=== PATIENT | male | born 1955 | race Two or more races ===

== ENCOUNTER 2020-06-13 10:36 | Day surgery (SDC) | payer OTHER ==
[2020-06-10 11:17] LABS: Basophils # (auto) 0 10 ^3/uL (0-0.2); Eosinophils # (auto) 0 10 ^3/uL (0-0.8); Hemoglobin 10.6 g/dL (13.5-17.5); Monocytes # (auto) 0.4 10 ^3/uL (0-1.3); Neutrophils # (auto) 2.1 10 ^3/uL (1.6-8.6); Platelet Count (auto) 27 10^3/uL (140-450); White Blood Cell 3.5 10^3/uL (4.4-10.8)
[2020-06-10 11:18] LABS: Basophils % (auto) 0.3 % (0.0-2.0); Eosinophils % (auto) 0.1 % (0.0-7.0); Hematocrit 29.8 % (41.0-53.0); Lymphocytes % (auto) 29.7 % (10.0-50.0); Mean Corpuscular Hemoglobin 31.1 pg (28.0-32.0); Mean Corpuscular Hgb Conc. 35.4 g/dL (32.0-36.0); Mean Corpuscular Volume 87.7 fL (80.0-100.0); Monocytes % (auto) 10.8 % (0.0-12.0); Neutrophils % (auto) 59.1 % (37.0-80.0); Nucleated Red Blood Cells % 0.4 %; Red Cell Distribution Width 13.7 % (11.8-14.3)
[2020-06-10 12:21] LABS: Potassium 4.1 mmol/L (3.5-5.1)
[2020-06-10 12:38] LABS: Albumin 3.2 g/dL (3.4-5.0); BUN/Creatinine Ratio 28.6; Bilirubin, Total 0.5 mg/dL (0.2-1.0); Calcium 9.3 mg/dL (8.5-10.1); Total Protein 7.9 g/dL (6.4-8.2)
[~2020-06-13] VITALS: Ht 172.7 cm; Wt 90.7 kg
[2020-06-13] MEDS ORDERED: diphenhdrAMINE HCL 25 MG CAP PO ONE (11:30)
[2020-06-13] MEDS ORDERED: ACETAMINOPHEN 325 MG TAB PO ONE (11:30)
[2020-06-13 12:06] VITALS: BP 114/64
[2020-06-13 12:34] VITALS: BP 119/63
[2020-06-13 13:54] VITALS: BP 137/66
== END 2020-06-13 13:57 | disposition home or self-care (01) ==
LOC: CATH 10:36
PROVIDERS: ATTEND Internal Medicine
DX: D69.6 Thrombocytopenia, unspecified (principal); C92.01 Acute myeloblastic leukemia, in remission; Z68.30 Body mass index [BMI] 30.0-30.9, adult; Z98.890 Other specified postprocedural states; Z79.899 Other long term (current) drug therapy; Z20.822 Contact with and (suspected) exposure to COVID-19
CPT/HCPCS: 36415; 36430; 80053; 83615; 85025; 86850; 86900; 86901; J7040; P9035; U0003

== ENCOUNTER 2020-06-18 07:17 | Day surgery (SDC) | payer OTHER ==
[~2020-06-18] VITALS: Ht 172.7 cm; Wt 90.7 kg
[2020-06-18] MEDS ORDERED: ACETAMINOPHEN 325 MG TAB PO PRN (08:00)
[2020-06-18] MEDS ORDERED: diphenhdrAMINE HCL 25 MG CAP PO ONE ×2 (08:00→09:17)
[2020-06-18 08:14] LABS: Hemoglobin 8.5 g/dL (13.5-17.5)
[2020-06-18 08:15] LABS: Hematocrit 24.7 % (41.0-53.0); Mean Corpuscular Hemoglobin 31.6 pg (28.0-32.0); Mean Corpuscular Hgb Conc. 34.3 g/dL (32.0-36.0); Mean Corpuscular Volume 91.9 fL (80.0-100.0); Platelet Count (auto) 22 10^3/uL (140-450); Red Blood Cells 2.68 10^6/uL (4.5-5.90); Red Cell Distribution Width 13.4 % (11.8-14.3); White Blood Cell 2.5 10^3/uL (4.4-10.8)
[2020-06-18 08:22] LABS: Basophils % (manual) 0 (0.0-2.0); Blast Cells 0; Eosinophils % (manual) 0 (0-7); Metamyelocytes % 0; Myelocytes % 0; Promyelocytes % 0; Reactive Lymphocytes 0
[2020-06-18 08:39] LABS: Anion Gap 8 (5-15); Blood Urea Nitrogen 11 mg/dL (7-18); Carbon Dioxide 27 mmol/L (21-32); Chloride 105 mmol/L (98-107); Glucose 114 mg/dL (74-106); Potassium 3.8 mmol/L (3.5-5.1); Sodium 140 mmol/L (136-145)
[2020-06-18 08:40] LABS: BUN/Creatinine Ratio 16.4; Calcium 8.4 mg/dL (8.5-10.1); GFR African American 153 mL/min; GFR Non-African American 126 mL/min
[2020-06-18 09:15] VITALS: BP 128/73
[2020-06-18 09:30] VITALS: BP 131/70
[2020-06-18 09:45] LABS: Band Neutrophils % (manual) 1; Lymphocytes % (manual) 42 (10.0-50.0); Monocytes % (manual) 8 (0-12)
[2020-06-18 10:06] VITALS: BP 126/64
[2020-06-18 11:02] VITALS: BP 119/68
[2020-06-18] MEDS ORDERED: LISI-648 PO (11:44)
[2020-06-18] MEDS ORDERED: FOLI1TAB6 PO (11:44)
[2020-06-18] MEDS ORDERED: CHOL50007 PO (11:44)
[2020-06-18] MEDS ORDERED: ELTR25PA PO (11:44)
[2020-06-18] MEDS ORDERED: THIA100T5 PO (11:44)
[2020-06-18] MEDS ORDERED: LANS-34 PO (11:44)
[2020-06-18] MEDS ORDERED: ACYC-163 PO (11:44)
[2020-06-18] MEDS ORDERED: ALLO300T2 PO (11:44)
[2020-06-18] MEDS ORDERED: FLUT250M2 INH (11:44)
[2020-06-18 11:57] VITALS: BP 132/83
[2020-06-18 12:56] LABS: Basophils # (auto) 0 10 ^3/uL (0-0.2); Eosinophils # (auto) 0 10 ^3/uL (0-0.8); Hemoglobin 8.1 g/dL (13.5-17.5); Monocytes # (auto) 0.2 10 ^3/uL (0-1.3); Neutrophils # (auto) 1.2 10 ^3/uL (1.6-8.6); Nucleated Red Blood Cells % 0.5 %; Platelet Count (auto) 38 10^3/uL (140-450); Red Cell Distribution Width 13.4 % (11.8-14.3); White Blood Cell 2.5 10^3/uL (4.4-10.8)
[2020-06-18 13:00] LABS: Basophils % (auto) 0.4 % (0.0-2.0); Eosinophils % (auto) 0.3 % (0.0-7.0); Hematocrit 22.8 % (41.0-53.0); Lymphocytes % (auto) 41.6 % (10.0-50.0); Mean Corpuscular Hemoglobin 31.9 pg (28.0-32.0); Mean Corpuscular Hgb Conc. 35.6 g/dL (32.0-36.0); Mean Corpuscular Volume 89.7 fL (80.0-100.0); Monocytes % (auto) 9.6 % (0.0-12.0); Neutrophils % (auto) 48.1 % (37.0-80.0); Red Blood Cells 2.54 10^6/uL (4.5-5.90)
== END 2020-06-18 12:40 | disposition home or self-care (01) ==
LOC: CATH 07:17
PROVIDERS: ATTEND Internal Medicine
DX: D64.9 Anemia, unspecified (principal); I10 Essential (primary) hypertension; Z80.1 Family history of malignant neoplasm of trachea, bronchus and lung; Z20.822 Contact with and (suspected) exposure to COVID-19; Z98.890 Other specified postprocedural states; Z79.899 Other long term (current) drug therapy; Z68.30 Body mass index [BMI] 30.0-30.9, adult
CPT/HCPCS: 36415; 36430; 80048; 85007; 85025; 85027; 86850; 86900; 86901; J7030; J7050; P9035; U0003

== ENCOUNTER 2020-06-24 17:33 | Emergency (ER) | payer OTHER ==
[~2020-06-24] VITALS: Ht 172.7 cm; Wt 90.7 kg
[~2020-06-24 17:33] MED LIST: ACYC-163 PO; ALLO300T2 PO; CHOL50007 PO; ELTR25PA PO; FLUT250M2 INH; FOLI1TAB6 PO; LANS-34 PO; LISI-648 PO; THIA100T5 PO
[2020-06-24 20:29] LABS: Basophils # (auto) 0 10 ^3/uL (0-0.2); Basophils % (auto) 0.8 % (0.0-2.0); Eosinophils # (auto) 0 10 ^3/uL (0-0.8); Lymphocytes # (auto) 1.2 10 ^3/uL (0.4-5.4)
[2020-06-24 20:31] LABS: Eosinophils % (auto) 0.4 % (0.0-7.0); Hematocrit 21.2 % (41.0-53.0); Hemoglobin 7.5 g/dL (13.5-17.5); Mean Corpuscular Hemoglobin 32.3 pg (28.0-32.0); Mean Corpuscular Hgb Conc. 35.3 g/dL (32.0-36.0); Mean Corpuscular Volume 91.5 fL (80.0-100.0); Monocytes # (auto) 0.2 10 ^3/uL (0-1.3); Monocytes % (auto) 7.6 % (0.0-12.0); Neutrophils # (auto) 1.5 10 ^3/uL (1.6-8.6); Neutrophils % (auto) 50.2 % (37.0-80.0); Nucleated Red Blood Cells % 0.3 %; Red Blood Cells 2.32 10^6/uL (4.5-5.90); Red Cell Distribution Width 13.5 % (11.8-14.3)
[2020-06-24 20:52] LABS: Calcium 8.1 mg/dL (8.5-10.1); Potassium 3.1 mmol/L (3.5-5.1)
[2020-06-24 20:58] LABS: Albumin 3.1 g/dL (3.4-5.0); BUN/Creatinine Ratio 25.8; Bilirubin, Total 0.3 mg/dL (0.2-1.0); Total Protein 6.8 g/dL (6.4-8.2)
[2020-06-24 20:59] LABS: Platelet Count (auto) 13 10^3/uL (140-450)
[2020-06-24] MEDS ORDERED: diphenhdrAMINE HCL 25 MG CAP PO STA (21:12)
[2020-06-24] MEDS ORDERED: ACETAMINOPHEN 500 MG TAB PO ONE (21:15)
[2020-06-24] MEDS ORDERED: POTASSIUM EFFERVESENT TAB 25 MEQ PO ONE (22:45)
[2020-06-25 04:00] VITALS: BP 127/65
== END 2020-06-25 05:06 | disposition home or self-care (01) ==
LOC: ER 17:33
DX: D69.6 Thrombocytopenia, unspecified (principal); C94.80 Other specified leukemias not having achieved remission; Z87.891 Personal history of nicotine dependence; Z79.899 Other long term (current) drug therapy
CPT/HCPCS: 36415; 36430; 80053; 85025; 85610; 86850; 86900; 86901; 99285; P9035

== ENCOUNTER 2020-07-03 08:02 | Day surgery (SDC) | payer OTHER ==
[2020-06-30 10:41] LABS: Basophils # (auto) 0 10 ^3/uL (0-0.2); Eosinophils # (auto) 0 10 ^3/uL (0-0.8); Lymphocytes # (auto) 0.9 10 ^3/uL (0.4-5.4); Monocytes # (auto) 0.2 10 ^3/uL (0-1.3); Neutrophils # (auto) 1.2 10 ^3/uL (1.6-8.6); White Blood Cell 2.4 10^3/uL (4.4-10.8)
[2020-06-30 10:43] LABS: Basophils % (auto) 0.5 % (0.0-2.0); Eosinophils % (auto) 0.6 % (0.0-7.0); Hematocrit 22.4 % (41.0-53.0); Hemoglobin 7.7 g/dL (13.5-17.5); Lymphocytes % (auto) 38.5 % (10.0-50.0); Mean Corpuscular Hemoglobin 32.7 pg (28.0-32.0); Mean Corpuscular Hgb Conc. 34.5 g/dL (32.0-36.0); Mean Corpuscular Volume 94.8 fL (80.0-100.0); Monocytes % (auto) 9.8 % (0.0-12.0); Neutrophils % (auto) 50.6 % (37.0-80.0); Nucleated Red Blood Cells % 0.3 %; Red Blood Cells 2.36 10^6/uL (4.5-5.90)
[2020-06-30 11:09] LABS: Platelet Count (auto) 19 10^3/uL (140-450); Potassium 4.1 mmol/L (3.5-5.1)
[2020-06-30 11:19] LABS: Albumin 3.1 g/dL (3.4-5.0); BUN/Creatinine Ratio 30.6; Bilirubin, Total 0.3 mg/dL (0.2-1.0); Calcium 8.5 mg/dL (8.5-10.1)
[2020-07-03 08:45] VITALS: BP 110/56
[2020-07-03] MEDS ORDERED: diphenhdrAMINE HCL 25 MG CAP PO ONE (08:45)
[2020-07-03] MEDS ORDERED: ACETAMINOPHEN 325 MG TAB PO ONE (08:45)
[2020-07-03 09:00] VITALS: BP 135/66
[2020-07-03 11:39] VITALS: BP 145/67
[2020-07-03 11:40] VITALS: BP 141/71
[2020-07-03 12:38] LABS: Basophils # (auto) 0 10 ^3/uL (0-0.2); Basophils % (auto) 0.5 % (0.0-2.0); Eosinophils # (auto) 0 10 ^3/uL (0-0.8); Hemoglobin 7.4 g/dL (13.5-17.5); Monocytes # (auto) 0.3 10 ^3/uL (0-1.3); Neutrophils # (auto) 1.1 10 ^3/uL (1.6-8.6); Red Blood Cells 2.25 10^6/uL (4.5-5.90); White Blood Cell 2.4 10^3/uL (4.4-10.8)
[2020-07-03 12:41] LABS: Eosinophils % (auto) 0.2 % (0.0-7.0); Hematocrit 21.7 % (41.0-53.0); Lymphocytes % (auto) 41.4 % (10.0-50.0); Mean Corpuscular Hemoglobin 32.9 pg (28.0-32.0); Mean Corpuscular Hgb Conc. 34.1 g/dL (32.0-36.0); Mean Corpuscular Volume 96.5 fL (80.0-100.0); Monocytes % (auto) 12.5 % (0.0-12.0); Neutrophils % (auto) 45.4 % (37.0-80.0); Nucleated Red Blood Cells % 0.5 %; Platelet Count (auto) 39 10^3/uL (140-450); Red Cell Distribution Width 14.8 % (11.8-14.3)
== END 2020-07-03 12:25 | disposition home or self-care (01) ==
LOC: CATH 08:02
PROVIDERS: ATTEND Internal Medicine
DX: D64.9 Anemia, unspecified (principal); Z20.822 Contact with and (suspected) exposure to COVID-19; Z98.890 Other specified postprocedural states; Z79.899 Other long term (current) drug therapy
CPT/HCPCS: 36415; 36430; 80053; 83615; 85025; 86850; 86900; 86901; J7040; P9035; U0003; 99152

== ENCOUNTER 2020-07-09 14:07 | Emergency (ER) | payer OTHER ==
[~2020-07-09] VITALS: Ht 172.7 cm; Wt 90.7 kg
[~2020-07-09 14:07] MED LIST changes: +ACETAMINOPHEN 500 MG TAB PO ONE
[2020-07-09 14:59] LABS: Basophils # (auto) 0 10 ^3/uL (0-0.2); Eosinophils # (auto) 0 10 ^3/uL (0-0.8); Hemoglobin 7.2 g/dL (13.5-17.5); Monocytes # (auto) 0.3 10 ^3/uL (0-1.3); Nucleated Red Blood Cells % 0.5 %; White Blood Cell 2.3 10^3/uL (4.4-10.8)
[2020-07-09 15:01] LABS: Basophils % (auto) 0.6 % (0.0-2.0); Hematocrit 21.3 % (41.0-53.0); Lymphocytes # (auto) 0.9 10 ^3/uL (0.4-5.4); Lymphocytes % (auto) 41.4 % (10.0-50.0); Mean Corpuscular Hemoglobin 33.5 pg (28.0-32.0); Mean Corpuscular Hgb Conc. 33.7 g/dL (32.0-36.0); Mean Corpuscular Volume 99.3 fL (80.0-100.0); Monocytes % (auto) 12.1 % (0.0-12.0); Neutrophils % (auto) 44.9 % (37.0-80.0); Red Blood Cells 2.15 10^6/uL (4.5-5.90)
[2020-07-09 15:05] LABS: Albumin 3.3 g/dL (3.4-5.0); Calcium 8.6 mg/dL (8.5-10.1); Potassium 3.7 mmol/L (3.5-5.1)
[2020-07-09 15:08] LABS: BUN/Creatinine Ratio 19.4; Bilirubin, Total 0.4 mg/dL (0.2-1.0); Total Protein 6.9 g/dL (6.4-8.2)
[2020-07-09 15:11] LABS: Red Cell Distribution Width 25.5 % (11.8-14.3)
[2020-07-09 15:13] LABS: Platelet Count (auto) 14 10^3/uL (140-450)
[2020-07-09 16:47] LABS: INR 0.99 (0.9-1.15); Partial Thromboplastin Time 29.3 sec (23.0-31.2)
[2020-07-09] MEDS ORDERED: diphenhdrAMINE HCL 25 MG CAP PO PRN (17:30)
[2020-07-09] MEDS ORDERED: ACETAMINOPHEN 325 MG TAB PO ONE (18:00)
[2020-07-09] MEDS ORDERED: diphenhdrAMINE HCL 50 MG/1 ML VL IV ONE (21:00)
[2020-07-09] MEDS ORDERED: ACETAMINOPHEN 500 MG TAB PO ONE (21:15)
[2020-07-09] MEDS ORDERED: HYDROcodone-ACET 10/325MG TAB PO ONE (22:45)
[2020-07-10 04:38] VITALS: BP 60/65
[2020-07-10 04:45] LABS: Basophils # (auto) 0 10 ^3/uL (0-0.2); Eosinophils # (auto) 0 10 ^3/uL (0-0.8); Lymphocytes # (auto) 1.1 10 ^3/uL (0.4-5.4); Monocytes # (auto) 0.3 10 ^3/uL (0-1.3); Neutrophils # (auto) 0.9 10 ^3/uL (1.6-8.6); White Blood Cell 2.4 10^3/uL (4.4-10.8)
[2020-07-10 04:47] LABS: Basophils % (auto) 0.4 % (0.0-2.0); Eosinophils % (auto) 0.8 % (0.0-7.0); Hematocrit 23.4 % (41.0-53.0); Lymphocytes % (auto) 46.7 % (10.0-50.0); Mean Corpuscular Hemoglobin 33.1 pg (28.0-32.0); Mean Corpuscular Hgb Conc. 34.3 g/dL (32.0-36.0); Mean Corpuscular Volume 96.3 fL (80.0-100.0); Monocytes % (auto) 13.2 % (0.0-12.0); Neutrophils % (auto) 38.9 % (37.0-80.0); Nucleated Red Blood Cells % 0.4 %; Platelet Count (auto) 27 10^3/uL (140-450); Red Blood Cells 2.42 10^6/uL (4.5-5.90)
[2020-07-10 04:59] LABS: Red Cell Distribution Width 22.1 % (11.8-14.3)
== END 2020-07-10 05:10 | disposition home or self-care (01) ==
LOC: ER 14:07
DX: D69.6 Thrombocytopenia, unspecified (principal); D64.9 Anemia, unspecified; I10 Essential (primary) hypertension; Z85.6 Personal history of leukemia; Z87.891 Personal history of nicotine dependence
CPT/HCPCS: 36415; 80053; 85025; 85610; 85730; 93005; 96374; 99285; J1200

== ENCOUNTER 2020-07-11 06:57 | Day surgery (SDC) | payer OTHER ==
[2020-07-09 11:21] LABS: Basophils # (auto) 0 10 ^3/uL (0-0.2); Eosinophils # (auto) 0 10 ^3/uL (0-0.8); Eosinophils % (auto) 0.7 % (0.0-7.0); Hemoglobin 7.5 g/dL (13.5-17.5); Monocytes # (auto) 0.3 10 ^3/uL (0-1.3); Monocytes % (auto) 11.8 % (0.0-12.0); Nucleated Red Blood Cells % 0.4 %; White Blood Cell 2.7 10^3/uL (4.4-10.8)
[2020-07-09 11:23] LABS: Basophils % (auto) 0.8 % (0.0-2.0); Lymphocytes % (auto) 37.3 % (10.0-50.0); Mean Corpuscular Hemoglobin 33.7 pg (28.0-32.0); Mean Corpuscular Hgb Conc. 34.1 g/dL (32.0-36.0); Mean Corpuscular Volume 98.7 fL (80.0-100.0); Neutrophils # (auto) 1.3 10 ^3/uL (1.6-8.6); Neutrophils % (auto) 49.4 % (37.0-80.0); Red Blood Cells 2.23 10^6/uL (4.5-5.90); Red Cell Distribution Width 25.1 % (11.8-14.3)
[2020-07-09 11:56] LABS: Albumin 3.4 g/dL (3.4-5.0); Calcium 8.4 mg/dL (8.5-10.1); Potassium 3.8 mmol/L (3.5-5.1)
[2020-07-09 12:00] LABS: BUN/Creatinine Ratio 21.5; Bilirubin, Total 0.5 mg/dL (0.2-1.0); Total Protein 7.1 g/dL (6.4-8.2)
[2020-07-09 12:33] LABS: Platelet Count (auto) 15 10^3/uL (140-450)
[~2020-07-11] VITALS: Ht 172.7 cm; Wt 90.7 kg
[~2020-07-11 06:57] MED LIST changes: -ACETAMINOPHEN 500 MG TAB PO ONE
[2020-07-11] MEDS ORDERED: ACETAMINOPHEN 325 MG TAB PO ONE (08:15)
[2020-07-11] MEDS ORDERED: diphenhdrAMINE HCL 25 MG CAP PO ONE (08:15)
[2020-07-11 09:05] VITALS: BP 134/66
[2020-07-11 09:12] VITALS: BP 142/62
[2020-07-11 09:40] VITALS: BP 132/67
[2020-07-11 10:11] VITALS: BP 150/77
[2020-07-11 10:38] VITALS: BP 144/69
[2020-07-11 11:13] LABS: Basophils # (auto) 0 10 ^3/uL (0-0.2); Eosinophils # (auto) 0 10 ^3/uL (0-0.8); Hemoglobin 8.2 g/dL (13.5-17.5); Lymphocytes # (auto) 0.8 10 ^3/uL (0.4-5.4)
[2020-07-11 11:15] LABS: Basophils % (auto) 1.2 % (0.0-2.0); Eosinophils % (auto) 0.3 % (0.0-7.0); Hematocrit 24.5 % (41.0-53.0); Lymphocytes % (auto) 34.2 % (10.0-50.0); Mean Corpuscular Hemoglobin 32.6 pg (28.0-32.0); Mean Corpuscular Hgb Conc. 33.6 g/dL (32.0-36.0); Mean Corpuscular Volume 97.2 fL (80.0-100.0); Monocytes # (auto) 0.2 10 ^3/uL (0-1.3); Neutrophils # (auto) 1.3 10 ^3/uL (1.6-8.6); Neutrophils % (auto) 54.3 % (37.0-80.0); Nucleated Red Blood Cells % 0.1 %; Platelet Count (auto) 50 10^3/uL (140-450); Red Blood Cells 2.52 10^6/uL (4.5-5.90); White Blood Cell 2.4 10^3/uL (4.4-10.8)
== END 2020-07-11 11:10 | disposition home or self-care (01) ==
LOC: CATH 06:57
PROVIDERS: ATTEND Internal Medicine
DX: D64.9 Anemia, unspecified (principal); Z20.822 Contact with and (suspected) exposure to COVID-19; Z98.890 Other specified postprocedural states; Z79.899 Other long term (current) drug therapy; Z68.30 Body mass index [BMI] 30.0-30.9, adult
CPT/HCPCS: 36415; 36430; 80053; 83615; 85025; 86850; 86900; 86901; 86920; P9016; P9035; U0003

== ENCOUNTER 2020-07-16 07:27 | Day surgery (SDC) | payer OTHER ==
[2020-07-16] VITALS (8 sets, daily range): BP systolic 107–155; BP diastolic 63–86
[2020-07-16] MEDS ORDERED: ACETAMINOPHEN 325 MG TAB PO ONE ×2 (07:58→08:00)
[2020-07-16] MEDS ORDERED: diphenhdrAMINE HCL 25 MG CAP PO ONE (08:00)
== END 2020-07-16 14:40 | disposition home or self-care (01) ==
LOC: CATH 07:27
PROVIDERS: ATTEND Internal Medicine
DX: D64.9 Anemia, unspecified (principal); Z98.890 Other specified postprocedural states; Z79.899 Other long term (current) drug therapy
CPT/HCPCS: 36430; 86850; 86900; 86901; J7030; P9035

== ENCOUNTER 2020-07-18 07:33 | Day surgery (SDC) | payer OTHER ==
[2020-07-18] VITALS (10 sets, daily range): BP systolic 101–148; BP diastolic 52–77
[2020-07-18] MEDS ORDERED: ACETAMINOPHEN 325 MG TAB PO ONE (08:15)
[2020-07-18] MEDS ORDERED: diphenhdrAMINE HCL 25 MG CAP PO ONE ×2 (08:15→08:25)
[2020-07-18] MEDS ORDERED: HYDR-4798 PO (10:11)
[2020-07-18] MEDS ORDERED: ZOLP10TA6 PO (10:11)
[2020-07-18] MEDS ORDERED: ATOR20TA PO (10:11)
[2020-07-18] MEDS ORDERED: FINA5TAB4 PO (10:11)
[2020-07-18] MEDS ORDERED: FLUT1AER6 IN (10:11)
[2020-07-18] MEDS ORDERED: SUCR1TAB PO (10:11)
[2020-07-18] MEDS ORDERED: TAMS0.4C36 PO (10:11)
[2020-07-18] MEDS ORDERED: OMEP-434 PO (10:11)
[2020-07-18] MEDS ORDERED: MULT-1018 PO (10:18)
[2020-07-18] MEDS ORDERED: ELTR25PA PO (10:18)
[2020-07-18] MEDS ORDERED: CHOL500033 PO (10:18)
[2020-07-18 15:14] LABS: Hemoglobin 7.5 g/dL (13.5-17.5); Platelet Count (auto) 62 10^3/uL (140-450); Red Blood Cells 2.18 10^6/uL (4.5-5.90); White Blood Cell 2.6 10^3/uL (4.4-10.8)
[2020-07-18 15:17] LABS: Hematocrit 21.7 % (41.0-53.0); Mean Corpuscular Hemoglobin 34.5 pg (28.0-32.0); Mean Corpuscular Hgb Conc. 34.7 g/dL (32.0-36.0); Mean Corpuscular Volume 99.4 fL (80.0-100.0)
[2020-07-18 15:21] LABS: Red Cell Distribution Width 24.7 % (11.8-14.3)
[2020-07-18 15:23] LABS: Basophils % (manual) 0 (0.0-2.0); Metamyelocytes % 0; Myelocytes % 0; Promyelocytes % 0; Reactive Lymphocytes 0
[2020-07-18 15:52] LABS: Eosinophils % (manual) 1 (0-7)
[2020-07-18 16:57] LABS: Band Neutrophils % (manual) 4; Lymphocytes % (manual) 35 (10.0-50.0)
[2020-07-18 16:58] LABS: Blast Cells 3
[2020-07-18 16:59] LABS: Monocytes % (manual) 20 (0-12)
[2020-07-23] MEDS ORDERED: LISI-646 PO (08:52)
[2020-07-23] MEDS ORDERED: LANS-34 PO (08:52)
== END 2020-07-18 15:30 | disposition home or self-care (01) ==
LOC: CATH 07:33
PROVIDERS: ATTEND Internal Medicine
DX: D64.9 Anemia, unspecified (principal); Z20.822 Contact with and (suspected) exposure to COVID-19; Z98.890 Other specified postprocedural states; Z79.899 Other long term (current) drug therapy
CPT/HCPCS: 36415; 36430; 85007; 85027; 85060; 86900; 86901; 87426; P9035

== ENCOUNTER 2020-07-23 07:23 | Day surgery (SDC) | payer OTHER ==
[2020-07-21 09:42] LABS: Hematocrit 22.3 % (41.0-53.0); Hemoglobin 7.5 g/dL (13.5-17.5); Mean Corpuscular Hgb Conc. 33.9 g/dL (32.0-36.0)
[2020-07-21 09:46] LABS: Mean Corpuscular Volume 100.3 fL (80.0-100.0); Red Blood Cells 2.22 10^6/uL (4.5-5.90)
[2020-07-21 09:50] LABS: Red Cell Distribution Width 25.4 % (11.8-14.3)
[2020-07-21 09:57] LABS: White Blood Cell 1.9 10^3/uL (4.4-10.8)
[2020-07-21 09:58] LABS: Band Neutrophils % (manual) 0; Basophils % (manual) 0 (0.0-2.0); Blast Cells 0; Eosinophils % (manual) 0 (0-7); Myelocytes % 0; Promyelocytes % 0; Reactive Lymphocytes 0
[2020-07-21 11:00] LABS: Lymphocytes % (manual) 48 (10.0-50.0); Metamyelocytes % 2; Monocytes % (manual) 2 (0-12)
[2020-07-23] VITALS (9 sets, daily range): BP systolic 116–145; BP diastolic 54–75
[~2020-07-23 07:23] MED LIST changes: -ACYC-163 PO; +ATOR20TA PO; +CHOL500033 PO; -CHOL50007 PO; +FINA5TAB4 PO; +FLUT1AER6 IN; -FLUT250M2 INH; -FOLI1TAB6 PO; +HYDR-4798 PO; -LANS-34 PO; -LISI-648 PO; +MULT-1018 PO; +OMEP-434 PO; +SUCR1TAB PO; +TAMS0.4C36 PO; -THIA100T5 PO; +ZOLP10TA6 PO
[2020-07-23] MEDS ORDERED: ACETAMINOPHEN 325 MG TAB PO ONE ×2 (07:45→07:49)
[2020-07-23] MEDS ORDERED: diphenhdrAMINE HCL 25 MG CAP PO ONE ×2 (07:45→07:49)
[2020-07-23] MEDS ORDERED: LISI20TA28 PO (08:52)
[2020-07-23] MEDS ORDERED: LANS30CA58 PO (08:52)
[2020-07-23] MEDS ORDERED: POSA1TAB PO (08:52)
[2020-07-23] MEDS ORDERED: FOLI1TAB6 PO (08:58)
== END 2020-07-23 13:00 | disposition home or self-care (01) ==
LOC: CATH 07:23
PROVIDERS: ATTEND Internal Medicine
DX: D64.9 Anemia, unspecified (principal); Z20.822 Contact with and (suspected) exposure to COVID-19; Z98.890 Other specified postprocedural states; Z79.899 Other long term (current) drug therapy
CPT/HCPCS: 36415; 36430; 85007; 85027; 86850; 86900; 86901; J7050; P9035; U0003

== ENCOUNTER 2020-07-25 07:25 | Day surgery (SDC) | payer OTHER ==
[2020-07-25] VITALS (8 sets, daily range): BP systolic 126–142; BP diastolic 59–77
[~2020-07-25] VITALS: Ht 172.7 cm; Wt 90.7 kg
[~2020-07-25 07:25] MED LIST changes: +FOLI1TAB6 PO; +LANS-34 PO; +LISI-646 PO; +POSA1TAB PO
[2020-07-25] MEDS ORDERED: ACETAMINOPHEN 325 MG TAB PO ONE ×2 (07:59→08:00)
[2020-07-25] MEDS ORDERED: diphenhdrAMINE HCL 25 MG CAP PO ONE ×2 (07:59→08:00)
[2020-07-25 14:21] LABS: Hematocrit 21.2 % (41.0-53.0); White Blood Cell 2.1 10^3/uL (4.4-10.8)
[2020-07-25 14:23] LABS: Hemoglobin 7.2 g/dL (13.5-17.5); Mean Corpuscular Hemoglobin 34.3 pg (28.0-32.0); Mean Corpuscular Hgb Conc. 34.2 g/dL (32.0-36.0); Mean Corpuscular Volume 100.1 fL (80.0-100.0); Platelet Count (auto) 65 10^3/uL (140-450); Red Blood Cells 2.12 10^6/uL (4.5-5.90)
[2020-07-25 14:27] LABS: Red Cell Distribution Width 25.1 % (11.8-14.3)
[2020-07-25 14:28] LABS: Basophils % (manual) 0 (0.0-2.0); Metamyelocytes % 0; Myelocytes % 0; Promyelocytes % 0; Reactive Lymphocytes 0
[2020-07-25 17:15] LABS: Band Neutrophils % (manual) 1; Blast Cells 4; Eosinophils % (manual) 2 (0-7); Lymphocytes % (manual) 51 (10.0-50.0); Monocytes % (manual) 13 (0-12)
== END 2020-07-25 14:15 | disposition home or self-care (01) ==
LOC: CATH 07:25
PROVIDERS: ATTEND Internal Medicine
DX: D64.9 Anemia, unspecified (principal); Z98.890 Other specified postprocedural states; Z79.899 Other long term (current) drug therapy; Z68.30 Body mass index [BMI] 30.0-30.9, adult
CPT/HCPCS: 36415; 36430; 85007; 85027; 86900; 86901; J7050; P9035

== ENCOUNTER 2020-07-30 07:34 | Day surgery (SDC) | payer OTHER ==
[2020-07-28 10:13] LABS: Hemoglobin 7.8 g/dL (13.5-17.5)
[2020-07-28 10:17] LABS: Hematocrit 22.7 % (41.0-53.0); Mean Corpuscular Hemoglobin 34.6 pg (28.0-32.0); Mean Corpuscular Hgb Conc. 34.3 g/dL (32.0-36.0); Mean Corpuscular Volume 101.1 fL (80.0-100.0); Platelet Count (auto) 26 10^3/uL (140-450); Red Blood Cells 2.25 10^6/uL (4.5-5.90)
[2020-07-28 10:31] LABS: Basophils % (manual) 0 (0.0-2.0); Eosinophils % (manual) 0 (0-7); Promyelocytes % 0; Red Cell Distribution Width 24.4 % (11.8-14.3)
[2020-07-28 11:31] LABS: Band Neutrophils % (manual) 4; Blast Cells 5; Lymphocytes % (manual) 41 (10.0-50.0); Metamyelocytes % 1; Monocytes % (manual) 12 (0-12); Myelocytes % 1; Reactive Lymphocytes 1
[~2020-07-30] VITALS: Ht 172.7 cm; Wt 90.7 kg
[2020-07-30] VITALS (8 sets, daily range): BP systolic 104–137; BP diastolic 51–73
[2020-07-30] MEDS ORDERED: ACETAMINOPHEN 325 MG TAB PO ONE ×2 (07:45→08:35)
[2020-07-30] MEDS ORDERED: diphenhdrAMINE HCL 25 MG CAP PO ONE ×2 (07:45→08:35)
== END 2020-07-30 12:00 | disposition home or self-care (01) ==
LOC: CATH 07:34
PROVIDERS: ATTEND Internal Medicine
DX: D64.9 Anemia, unspecified (principal); Z20.822 Contact with and (suspected) exposure to COVID-19; Z98.890 Other specified postprocedural states; Z79.899 Other long term (current) drug therapy; Z68.30 Body mass index [BMI] 30.0-30.9, adult
CPT/HCPCS: 36415; 36430; 85007; 85027; 86850; 86900; 86901; J7050; P9035; U0003

== ENCOUNTER 2020-08-01 07:26 | Day surgery (SDC) | payer OTHER ==
[~2020-08-01] VITALS: Ht 172.7 cm; Wt 90.7 kg
[2020-08-01] VITALS (7 sets, daily range): BP systolic 124–159; BP diastolic 65–110
[2020-08-01] MEDS ORDERED: diphenhdrAMINE HCL 25 MG CAP PO ONE ×3 (07:45→08:51)
[2020-08-01] MEDS ORDERED: ACETAMINOPHEN 325 MG TAB PO ONE ×2 (07:45→08:37)
[2020-08-01 13:44] LABS: Platelet Count (auto) 69 10^3/uL (140-450)
[2020-08-01 13:46] LABS: Hematocrit 19.1 % (41.0-53.0); Mean Corpuscular Hemoglobin 34.8 pg (28.0-32.0); Mean Corpuscular Hgb Conc. 34.4 g/dL (32.0-36.0); Mean Corpuscular Volume 101.2 fL (80.0-100.0); Red Blood Cells 1.89 10^6/uL (4.5-5.90)
[2020-08-01 14:23] LABS: Red Cell Distribution Width 24.6 % (11.8-14.3)
[2020-08-01 14:25] LABS: Hemoglobin 6.6 g/dL (13.5-17.5)
[2020-08-01 14:26] LABS: Basophils % (manual) 0 (0.0-2.0); Eosinophils % (manual) 0 (0-7); Metamyelocytes % 0; Myelocytes % 0; Promyelocytes % 0; Reactive Lymphocytes 0
[2020-08-01 14:55] LABS: Band Neutrophils % (manual) 3; Blast Cells 1; Lymphocytes % (manual) 57 (10.0-50.0); Monocytes % (manual) 22 (0-12)
== END 2020-08-01 13:48 | disposition home or self-care (01) ==
LOC: CATH 07:26
PROVIDERS: ATTEND Internal Medicine
DX: D64.9 Anemia, unspecified (principal); Z98.890 Other specified postprocedural states; Z79.899 Other long term (current) drug therapy; Z68.30 Body mass index [BMI] 30.0-30.9, adult
CPT/HCPCS: 36415; 36430; 85007; 85027; 86900; 86901; P9035

== ENCOUNTER 2020-08-01 16:15 | Emergency (ER) | payer OTHER ==
[~2020-08-01] VITALS: Ht 172.7 cm; Wt 90.7 kg
[2020-08-01] VITALS (7 sets, daily range): BP systolic 132–153; BP diastolic 49–68
[2020-08-01 17:06] LABS: Mean Corpuscular Hemoglobin 34.9 pg (28.0-32.0); Red Blood Cells 1.94 10^6/uL (4.5-5.90)
[2020-08-01 17:09] LABS: Hematocrit 19.7 % (41.0-53.0); Mean Corpuscular Hgb Conc. 34.3 g/dL (32.0-36.0); Mean Corpuscular Volume 101.5 fL (80.0-100.0); Platelet Count (auto) 74 10^3/uL (140-450)
[2020-08-01 17:10] LABS: Red Cell Distribution Width 24.5 % (11.8-14.3)
[2020-08-01 17:19] LABS: Hemoglobin 6.8 g/dL (13.5-17.5); White Blood Cell 1.7 10^3/uL (4.4-10.8)
[2020-08-01 17:20] LABS: Basophils % (manual) 0 (0.0-2.0); Eosinophils % (manual) 0 (0-7); Myelocytes % 0; Promyelocytes % 0; Reactive Lymphocytes 0
[2020-08-01 17:54] LABS: Urine Bacteria NONE SEEN /hpf (None Seen); Urine Blood Negative /uL (Negative); Urine WBC 1 /hpf (0 - 3)
[2020-08-01 18:07] LABS: Albumin 3.3 g/dL (3.4-5.0); Anion Gap 9 (5-15); Blood Urea Nitrogen 15 mg/dL (7-18); Calcium 8.2 mg/dL (8.5-10.1); Carbon Dioxide 26 mmol/L (21-32); Chloride 110 mmol/L (98-107); Glucose 102 mg/dL (74-106); Potassium 3.6 mmol/L (3.5-5.1); Sodium 145 mmol/L (136-145)
[2020-08-01 18:16] LABS: Alanine Aminotransferase 28 U/L (16-61); Alkaline Phosphatase 87 U/L (45-117); Aspartate Aminotransferase 18 U/L (15-37); BUN/Creatinine Ratio 20.5; Bilirubin, Total 0.5 mg/dL (0.2-1.0); GFR African American 138 mL/min; GFR Non-African American 114 mL/min; Total Protein 6.8 g/dL (6.4-8.2)
[2020-08-01 19:01] LABS: Band Neutrophils % (manual) 1; Blast Cells 1; Lymphocytes % (manual) 54 (10.0-50.0); Metamyelocytes % 1; Monocytes % (manual) 17 (0-12)
[2020-08-01 21:32] LABS: Hemoglobin 7.6 g/dL (13.5-17.5)
[2020-08-01 21:34] LABS: Hematocrit 22.1 % (41.0-53.0); Mean Corpuscular Hemoglobin 33.8 pg (28.0-32.0); Mean Corpuscular Hgb Conc. 34.5 g/dL (32.0-36.0); Platelet Count (auto) 67 10^3/uL (140-450); Red Blood Cells 2.25 10^6/uL (4.5-5.90)
[2020-08-01 21:40] LABS: Red Cell Distribution Width 24.3 % (11.8-14.3)
[2020-08-01 21:44] LABS: Basophils % (manual) 0 (0.0-2.0); Eosinophils % (manual) 0 (0-7); Myelocytes % 0; Promyelocytes % 0; Reactive Lymphocytes 0
[2020-08-01 21:46] LABS: White Blood Cell 1.9 10^3/uL (4.4-10.8)
[2020-08-01 21:50] LABS: Albumin 3.4 g/dL (3.4-5.0); Calcium 8.2 mg/dL (8.5-10.1); Potassium 3.7 mmol/L (3.5-5.1)
[2020-08-01 21:56] LABS: BUN/Creatinine Ratio 27.8; Bilirubin, Total 0.5 mg/dL (0.2-1.0); Total Protein 6.6 g/dL (6.4-8.2)
[2020-08-01 22:09] LABS: Band Neutrophils % (manual) 1; Blast Cells 1; Lymphocytes % (manual) 60 (10.0-50.0); Metamyelocytes % 1; Monocytes % (manual) 15 (0-12)
== END 2020-08-01 21:53 | disposition home or self-care (01) ==
LOC: ER 16:15
DX: D64.9 Anemia, unspecified (principal); I10 Essential (primary) hypertension; Z85.6 Personal history of leukemia; Z87.891 Personal history of nicotine dependence
CPT/HCPCS: 36415; 36430; 80053; 81001; 84484; 85007; 85027; 86850; 86900; 86901; 86920; 99285; P9016

== ENCOUNTER 2020-08-06 07:21 | Day surgery (SDC) | payer OTHER ==
[2020-08-04 11:45] LABS: Hematocrit 23.8 % (41.0-53.0); Hemoglobin 8.2 g/dL (13.5-17.5); Mean Corpuscular Hgb Conc. 34.4 g/dL (32.0-36.0); Mean Corpuscular Volume 99.1 fL (80.0-100.0); Red Cell Distribution Width 23.9 % (11.8-14.3); White Blood Cell 1.7 10^3/uL (4.4-10.8)
[2020-08-04 11:46] LABS: Platelet Count (auto) 33 10^3/uL (140-450)
[2020-08-04 11:49] LABS: Basophils % (manual) 0 (0.0-2.0); Blast Cells 0; Metamyelocytes % 0; Myelocytes % 0; Promyelocytes % 0; Reactive Lymphocytes 0
[2020-08-04 12:03] LABS: Band Neutrophils % (manual) 4; Eosinophils % (manual) 1 (0-7); Lymphocytes % (manual) 35 (10.0-50.0); Monocytes % (manual) 14 (0-12)
[~2020-08-06] VITALS: Ht 172.7 cm; Wt 90.7 kg
[2020-08-06] VITALS (12 sets, daily range): BP systolic 124–169; BP diastolic 56–76
[2020-08-06] MEDS ORDERED: ACETAMINOPHEN 325 MG TAB PO ONE ×2 (07:45→07:52)
[2020-08-06] MEDS ORDERED: diphenhdrAMINE HCL 25 MG CAP PO ONE ×2 (07:45→07:52)
== END 2020-08-06 12:08 | disposition home or self-care (01) ==
LOC: CATH 07:21
PROVIDERS: ATTEND Internal Medicine
DX: D64.9 Anemia, unspecified (principal); Z68.30 Body mass index [BMI] 30.0-30.9, adult; Z20.822 Contact with and (suspected) exposure to COVID-19; Z98.890 Other specified postprocedural states; Z79.899 Other long term (current) drug therapy
CPT/HCPCS: 36415; 85007; 85027; 86850; 86900; 86901; 87426; P9035; 36430

== ENCOUNTER 2020-08-08 07:25 | Day surgery (SDC) | payer OTHER ==
[2020-08-08] VITALS (9 sets, daily range): BP systolic 133–156; BP diastolic 60–78
[2020-08-08] MEDS ORDERED: ACETAMINOPHEN 325 MG TAB PO ONE ×2 (07:45→07:51)
[2020-08-08] MEDS ORDERED: diphenhdrAMINE HCL 25 MG CAP PO ONE ×2 (07:45→07:51)
[2020-08-08] MEDS ORDERED: LIDOCAINE 2%HCL (LOCAL ANESTH.) INJ 20ML MDV ONE (14:24)
[2020-08-08 14:40] LABS: Platelet Count (auto) 73 10^3/uL (140-450)
[2020-08-08 14:42] LABS: Hematocrit 19.4 % (41.0-53.0); Mean Corpuscular Hemoglobin 34.2 pg (28.0-32.0); Mean Corpuscular Hgb Conc. 34.5 g/dL (32.0-36.0); Mean Corpuscular Volume 99.1 fL (80.0-100.0); Red Blood Cells 1.96 10^6/uL (4.5-5.90)
[2020-08-08 14:50] LABS: Red Cell Distribution Width 23.2 % (11.8-14.3)
[2020-08-08 14:56] LABS: Hemoglobin 6.7 g/dL (13.5-17.5); White Blood Cell 1.5 10^3/uL (4.4-10.8)
[2020-08-08 14:57] LABS: Basophils % (manual) 0 (0.0-2.0); Eosinophils % (manual) 0 (0-7); Myelocytes % 0; Promyelocytes % 0; Reactive Lymphocytes 0
[2020-08-08 15:53] LABS: Band Neutrophils % (manual) 5; Blast Cells 1; Lymphocytes % (manual) 69 (10.0-50.0); Metamyelocytes % 1; Monocytes % (manual) 11 (0-12)
== END 2020-08-08 14:00 | disposition home or self-care (01) ==
LOC: CATH 07:25
PROVIDERS: ATTEND Internal Medicine
DX: D64.9 Anemia, unspecified (principal); Z98.890 Other specified postprocedural states; Z79.899 Other long term (current) drug therapy
CPT/HCPCS: 36415; 36430; 85007; 85027; 86900; 86901; J7050; P9035

== ENCOUNTER 2020-08-13 07:23 | Day surgery (SDC) | payer OTHER ==
[2020-08-11 10:23] LABS: Hemoglobin 7.6 g/dL (13.5-17.5); Mean Corpuscular Hemoglobin 34.1 pg (28.0-32.0)
[2020-08-11 10:24] LABS: Mean Corpuscular Hgb Conc. 34.3 g/dL (32.0-36.0); Mean Corpuscular Volume 99.2 fL (80.0-100.0); Platelet Count (auto) 34 10^3/uL (140-450); Red Blood Cells 2.22 10^6/uL (4.5-5.90)
[2020-08-11 10:32] LABS: Red Cell Distribution Width 23.5 % (11.8-14.3)
[2020-08-11 10:39] LABS: Basophils % (manual) 0 (0.0-2.0); Blast Cells 0; Promyelocytes % 0; Reactive Lymphocytes 0
[2020-08-11 11:27] LABS: Band Neutrophils % (manual) 8; Lymphocytes % (manual) 42 (10.0-50.0)
[2020-08-11 11:28] LABS: Eosinophils % (manual) 1 (0-7); Metamyelocytes % 5; Monocytes % (manual) 14 (0-12); Myelocytes % 2
[2020-08-11 15:11] LABS: White Blood Cell 1.5 10^3/uL (4.4-10.8)
[2020-08-13] VITALS (11 sets, daily range): BP systolic 135–162; BP diastolic 59–75
[~2020-08-13] VITALS: Ht 172.7 cm; Wt 90.7 kg
[2020-08-13] MEDS ORDERED: diphenhdrAMINE HCL 25 MG CAP PO ONE ×2 (07:43→07:45)
[2020-08-13] MEDS ORDERED: ACETAMINOPHEN 325 MG TAB PO ONE ×2 (07:43→07:45)
== END 2020-08-13 12:30 | disposition home or self-care (01) ==
LOC: CATH 07:23
PROVIDERS: ATTEND Internal Medicine
DX: D64.9 Anemia, unspecified (principal); Z87.891 Personal history of nicotine dependence; Z20.822 Contact with and (suspected) exposure to COVID-19; Z79.899 Other long term (current) drug therapy
CPT/HCPCS: 36415; 36430; 85007; 85027; 86850; 86900; 86901; 87426; J7050; P9035

== ENCOUNTER 2020-08-15 07:26 | Day surgery (SDC) | payer OTHER ==
[~2020-08-15] VITALS: Ht 172.7 cm; Wt 90.7 kg
[2020-08-15] VITALS (11 sets, daily range): BP systolic 133–161; BP diastolic 57–75
[2020-08-15] MEDS ORDERED: ACETAMINOPHEN 325 MG TAB PO ONE ×2 (07:45→08:16)
[2020-08-15] MEDS ORDERED: diphenhdrAMINE HCL 25 MG CAP PO ONE ×2 (07:45→08:16)
[2020-08-15 14:50] LABS: Hematocrit 17.9 % (41.0-53.0); Mean Corpuscular Hemoglobin 35.5 pg (28.0-32.0); Mean Corpuscular Hgb Conc. 34.6 g/dL (32.0-36.0); Mean Corpuscular Volume 102.6 fL (80.0-100.0); Platelet Count (auto) 55 10^3/uL (140-450); Red Blood Cells 1.75 10^6/uL (4.5-5.90)
[2020-08-15 14:53] LABS: Red Cell Distribution Width 23.5 % (11.8-14.3)
[2020-08-15 14:56] LABS: Hemoglobin 6.2 g/dL (13.5-17.5); White Blood Cell 1.5 10^3/uL (4.4-10.8)
[2020-08-15 15:15] LABS: Basophils % (manual) 0 (0.0-2.0); Blast Cells 0; Eosinophils % (manual) 0 (0-7); Metamyelocytes % 0; Myelocytes % 0; Promyelocytes % 0; Reactive Lymphocytes 0
[2020-08-15 15:31] LABS: Band Neutrophils % (manual) 5; Lymphocytes % (manual) 68 (10.0-50.0); Monocytes % (manual) 11 (0-12)
== END 2020-08-15 14:31 | disposition home or self-care (01) ==
LOC: CATH 07:26
PROVIDERS: ATTEND Internal Medicine
DX: D64.9 Anemia, unspecified (principal); Z98.890 Other specified postprocedural states; Z79.899 Other long term (current) drug therapy
CPT/HCPCS: 36415; 36430; 85025; 85027; 86900; 86901; J7040; P9035; 85007

== ENCOUNTER 2020-08-20 07:19 | Day surgery (SDC) | payer OTHER ==
[2020-08-18 10:58] LABS: Hemoglobin 7.1 g/dL (13.5-17.5)
[2020-08-18 11:00] LABS: Hematocrit 20.5 % (41.0-53.0); Mean Corpuscular Hemoglobin 35.4 pg (28.0-32.0); Mean Corpuscular Hgb Conc. 34.9 g/dL (32.0-36.0); Mean Corpuscular Volume 101.5 fL (80.0-100.0); Red Blood Cells 2.02 10^6/uL (4.5-5.90)
[2020-08-18 11:23] LABS: Red Cell Distribution Width 23.5 % (11.8-14.3)
[2020-08-18 11:28] LABS: Platelet Count (auto) 20 10^3/uL (140-450); White Blood Cell 1.5 10^3/uL (4.4-10.8)
[2020-08-18 11:31] LABS: Basophils % (manual) 0 (0.0-2.0); Blast Cells 0; Myelocytes % 0; Promyelocytes % 0
[2020-08-18 11:38] LABS: Band Neutrophils % (manual) 4; Eosinophils % (manual) 2 (0-7); Lymphocytes % (manual) 46 (10.0-50.0); Metamyelocytes % 1; Monocytes % (manual) 22 (0-12); Reactive Lymphocytes 1
[2020-08-20] VITALS (9 sets, daily range): BP systolic 136–156; BP diastolic 55–72
[~2020-08-20] VITALS: Ht 30.5 cm; Wt 0.5 kg
[2020-08-20] MEDS ORDERED: diphenhdrAMINE HCL 25 MG CAP PO ONE ×2 (07:51→08:00)
[2020-08-20] MEDS ORDERED: ACETAMINOPHEN 325 MG TAB PO ONE ×2 (07:51→08:00)
== END 2020-08-20 12:35 | disposition home or self-care (01) ==
LOC: CATH 07:19
PROVIDERS: ATTEND Internal Medicine
DX: D64.9 Anemia, unspecified (principal); Z20.822 Contact with and (suspected) exposure to COVID-19; Z98.890 Other specified postprocedural states
CPT/HCPCS: 36415; 36430; 85007; 85027; 86850; 86900; 86901; J7050; P9035; U0003

== ENCOUNTER 2020-08-22 07:19 | Day surgery (SDC) | payer OTHER ==
[~2020-08-22] VITALS: Ht 30.5 cm; Wt 0.5 kg
[2020-08-22] MEDS ORDERED: diphenhdrAMINE HCL 25 MG CAP PO ONE (10:15)
[2020-08-22] MEDS ORDERED: ACETAMINOPHEN 500 MG TAB PO ONE (10:15)
[2020-08-22 11:40] VITALS: BP 155/72
[2020-08-22 11:55] VITALS: BP 151/68
[2020-08-22 13:09] VITALS: BP 169/77
[2020-08-22 13:20] VITALS: BP 175/81
[2020-08-22 15:15] LABS: Hematocrit 16.8 % (41.0-53.0); Mean Corpuscular Hgb Conc. 34.6 g/dL (32.0-36.0); Mean Corpuscular Volume 101.2 fL (80.0-100.0); Platelet Count (auto) 40 10^3/uL (140-450); Red Blood Cells 1.66 10^6/uL (4.5-5.90)
[2020-08-22 15:40] VITALS: BP 142/59
[2020-08-22 15:41] LABS: Red Cell Distribution Width 23.1 % (11.8-14.3)
[2020-08-22 15:49] LABS: White Blood Cell 1.6 10^3/uL (4.4-10.8)
[2020-08-22 15:50] LABS: Hemoglobin 5.8 g/dL (13.5-17.5)
[2020-08-22 15:51] LABS: Basophils % (manual) 0 (0.0-2.0); Blast Cells 0; Metamyelocytes % 0; Myelocytes % 0; Promyelocytes % 0
[2020-08-22 17:28] LABS: Band Neutrophils % (manual) 2; Eosinophils % (manual) 2 (0-7); Lymphocytes % (manual) 47 (10.0-50.0); Monocytes % (manual) 16 (0-12); Reactive Lymphocytes 3
== END 2020-08-22 15:43 | disposition home or self-care (01) ==
LOC: CATH 07:19
PROVIDERS: ATTEND Internal Medicine
DX: D64.9 Anemia, unspecified (principal); Z98.890 Other specified postprocedural states; Z79.899 Other long term (current) drug therapy
CPT/HCPCS: 36415; 36430; 85007; 85027; 86900; 86901; P9035

== ENCOUNTER 2020-08-27 07:21 | Day surgery (SDC) | payer OTHER ==
[2020-08-25 09:53] LABS: Mean Corpuscular Hemoglobin 34.7 pg (28.0-32.0); Mean Corpuscular Hgb Conc. 34.2 g/dL (32.0-36.0); Mean Corpuscular Volume 101.6 fL (80.0-100.0); Red Blood Cells 1.87 10^6/uL (4.5-5.90)
[2020-08-25 10:29] LABS: Red Cell Distribution Width 23.2 % (11.8-14.3)
[2020-08-25 10:33] LABS: Basophils % (manual) 0 (0.0-2.0); Eosinophils % (manual) 0 (0-7); Metamyelocytes % 0; Myelocytes % 0; Promyelocytes % 0
[2020-08-25 12:31] LABS: Band Neutrophils % (manual) 1; Blast Cells 2; Lymphocytes % (manual) 48 (10.0-50.0); Monocytes % (manual) 22 (0-12); Reactive Lymphocytes 1
[2020-08-25 12:39] LABS: Hemoglobin 6.5 g/dL (13.5-17.5); Platelet Count (auto) 17 10^3/uL (140-450); White Blood Cell 1.5 10^3/uL (4.4-10.8)
[2020-08-27] VITALS (10 sets, daily range): BP systolic 133–150; BP diastolic 68–79
[2020-08-27] MEDS ORDERED: diphenhdrAMINE HCL 25 MG CAP PO ONE (08:12)
[2020-08-27] MEDS ORDERED: ACETAMINOPHEN 325 MG TAB PO ONE (08:12)
== END 2020-08-27 14:40 | disposition home or self-care (01) ==
LOC: CATH 07:21
PROVIDERS: ATTEND Internal Medicine
DX: D69.6 Thrombocytopenia, unspecified (principal); C92.01 Acute myeloblastic leukemia, in remission; Z20.822 Contact with and (suspected) exposure to COVID-19; Z98.890 Other specified postprocedural states; Z79.899 Other long term (current) drug therapy
CPT/HCPCS: 36415; 36430; 85007; 85027; 86850; 86900; 86901; 87426; J7050; P9035

== ENCOUNTER 2020-08-29 07:38 | Day surgery (SDC) | payer OTHER ==
[2020-08-29] VITALS (22 sets, daily range): BP systolic 136–176; BP diastolic 59–85
[2020-08-29] MEDS ORDERED: ACETAMINOPHEN 325 MG TAB PO ONE ×2 (08:30→09:09)
[2020-08-29] MEDS ORDERED: diphenhdrAMINE HCL 25 MG CAP PO ONE ×2 (08:30→09:09)
[2020-08-29 09:14] LABS: Hematocrit 15.6 % (41.0-53.0); Mean Corpuscular Hemoglobin 34.8 pg (28.0-32.0); Mean Corpuscular Hgb Conc. 34.1 g/dL (32.0-36.0); Mean Corpuscular Volume 101.8 fL (80.0-100.0); Red Blood Cells 1.53 10^6/uL (4.5-5.90); Red Cell Distribution Width 23.2 % (11.8-14.3)
[2020-08-29 09:20] LABS: White Blood Cell 1.5 10^3/uL (4.4-10.8)
[2020-08-29 09:21] LABS: Hemoglobin 5.3 g/dL (13.5-17.5); Platelet Count (auto) 17 10^3/uL (140-450)
[2020-08-29 09:23] LABS: Basophils % (manual) 0 (0.0-2.0); Blast Cells 0; Eosinophils % (manual) 0 (0-7); Metamyelocytes % 0; Myelocytes % 0; Promyelocytes % 0; Reactive Lymphocytes 0
[2020-08-29 12:54] LABS: Band Neutrophils % (manual) 2; Lymphocytes % (manual) 45 (10.0-50.0)
[2020-08-29 12:55] LABS: Monocytes % (manual) 20 (0-12)
[2020-08-29 19:53] LABS: Mean Corpuscular Hemoglobin 31.5 pg (28.0-32.0); Mean Corpuscular Volume 92.6 fL (80.0-100.0); Platelet Count (auto) 41 10^3/uL (140-450); Red Blood Cells 2.16 10^6/uL (4.5-5.90)
[2020-08-29 19:57] LABS: Red Cell Distribution Width 27.2 % (11.8-14.3)
[2020-08-29 20:30] LABS: Hemoglobin 6.8 g/dL (13.5-17.5)
[2020-08-29 20:32] LABS: White Blood Cell 1.8 10^3/uL (4.4-10.8)
[2020-08-29 20:33] LABS: Band Neutrophils % (manual) 0; Basophils % (manual) 0 (0.0-2.0); Blast Cells 0; Eosinophils % (manual) 0 (0-7); Metamyelocytes % 0; Myelocytes % 0; Promyelocytes % 0; Reactive Lymphocytes 0
[2020-08-29 20:52] LABS: Lymphocytes % (manual) 74 (10.0-50.0); Monocytes % (manual) 11 (0-12)
== END 2020-08-29 18:45 | disposition home or self-care (01) ==
LOC: CATH 07:38
PROVIDERS: ATTEND Internal Medicine
DX: D69.6 Thrombocytopenia, unspecified (principal); Z98.890 Other specified postprocedural states; Z79.899 Other long term (current) drug therapy
CPT/HCPCS: 36415; 36430; 85007; 85027; 86850; 86900; 86901; 86920; P9016; P9035